=== PATIENT | male | born 1985 | race Two or more races ===

== ENCOUNTER 2025-05-03 09:05 | Outpatient (AMB) | payer BC, SELFPAY ==
--- NOTE | 2025-05-03 09:30 | A.OFFVIS_ITS ---
Intake Visit Reasons: dysuria/ED Intake Note: New is present for Erectile Dysfunction and Dysuria Urology Rx:none PVR:25 mls Blood Thinners:none Imaging completed:none Heavy Equipment Diesel Mechanic Required: No Accompanied by: Self / Same As Patient Allergies No Known Allergies Allergy (Verified 05/03/25 09:39) HPI Comments Details: Joe is a very pleasant male. He is seen for the following urologic conditions - urinary tract infection UA today negative Discussed over cleaning of penis and penile tip Has been creating inflamed urethra Everything normal on exam Episode of urinary tract infection PVR today 25 cc UA normal Review of Systems Const Denies chills and Denies fever(s) Card Reports no additional complaints and Denies syncope Resp Denies cough GI Denies abdominal pain and Denies heartburn Reports as per HPI and Denies change in libido Neuro Denies syncope Psych Denies change in libido Endo Denies change in libido Physical Exam Const General: cooperative, healthy appearing, comfortable and no acute distress Orientation/consciousness: patient oriented x3 HEENT Face and sinus: Yes normal facial exam Mouth: moist mucous membranes Neck Neck: Yes normal visual inspection, Yes full ROM and Yes trachea midline Chest Chest palpation & inspection: normal inspection of the chest Resp Effort & Inspection: normal respiratory effort, able to speak in complete s entences and no respiratory distress GI Inspection: Yes normal to inspection Back/Spine/Pelvis Cervical Spine: normal cervical lordosis Thoracic/Lumbar Spine: thoracic and lumbar spine normal to inspection Skin General skin exam: no rashes or lesions noted Neuro General: patient oriented x3, gait normal, tone normal and moves all extremities Extrem General: Yes normal to inspection and Yes capillary refill normal Office Procedures Post Void Residual Post Residual Void Post Void Residual (PVR): 25 [id number] Void Residual by ultrasound Results AMB Urinalysis, Automated UA Leukoctes 0 Yuan/uL Last Edit by JOMAR Meyers on 05/03/25 09:41 UA Nitrite Negative Last Edit by JOMAR Meyers on 05/03/25 09:41 UA Urobilinogen 0.2 mg/dL Last Edit by JOMAR Meyers on 05/03/25 09:41 UA Protein 0 mg/dL Last Edit by JOMAR Meyers on 05/03/25 09:41 UA pH 6.0 Last Edit by JOMAR Meyers on 05/03/25 09:41 UA Blood 10 Andrea/uL Last Edit by Dolores Paris, [facility] on 05/03/25 09:41 UA Specific Magness 1.015 Last Edit by Dolores Paris, [facility] on 05/03/25 09:4 1 UA Ketone Negative Last Edit by Dolores Paris, [facility] on 05/03/25 09:41 UA Bilirubin 0 mg/dL Last Edit by Dolores Paris, [facility] on 05/03/25 09:41 UA Glucose 0 mg/dL Last Edit by Dolores Paris, [facility] on 05/03/25 09:41 Results Reviewed Results Reviewed: Laboratory Last Values Urine pH (Auto) 6.0 05/03/25 09:41 Specific Magness (Auto) 1.015 05/03/25 09:41 Urine Protein (Auto) 0 mg/dL 05/03/25 09:41 Glucose (UA)(Auto) 0 mg/dL 05/03/25 09:41 Urine Ketones (Auto) Negative 05/03/25 09:41 Urine Blood (Auto) 10 Andrea/uL 05/03/25 09:41 Urine Nitrite (Auto) Negative 05/03/25 09:41 Urine Bilirubin (Auto) 0 mg/dL 05/03/25 09:41 Urine Urobilinogen (Auto) 0.2 mg/dL 05/03/25 09:41 Leukocyte Esterase (Auto) 0 Yuan/uL 05/03/25 09:41 Assessment & Plan Assessment & Plan (1) Urethritis: Code(s): N34.2 - Other urethritis Category: Medical Plan Reassurance provided Patient Instructions: This note is constructed using voice recognition software. While every effort has been made to ensure accuracy tennis instructor errors may have been included. Imaging studies, laboratory and physical exam results were discussed and reviewed in detail. No major barriers to patient understanding were identified. An opportunity to ask questions regarding the treatment plan was provided. All questions were answered. The patient expressed understanding and agreement with the above treatment plan. The patient is aware they should contact our office by phone for worsening of their current condition or the appearance of new urologic symptoms. Compliance is encouraged with any medications and followup testing that is ordered. It is a privilege to participate in the urologic care of your patient. If you have any questions or concerns regarding treatment for the above conditions, or other urologic issues, please do not hesitate to contact me. The office telephone contact is [phone]. Sincerely, Dr Darian Camarillo MD, [facility] - Urology Compassionate Specialist Care for the Genitourinary System Coding Level of Care Code New Pt Level 3 (19249) Diagnoses Urethritis N34.2 CPT Codes Post Residual Void - PVR CPT Code: 20320-[id number] Void Residual by ultrasound ([id number])
--- OUTSIDE RECORDS SUMMARY | 2025-05-03 09:52 | XMS_ITS | Clinical Summary ---
Author Organization [facility] Address [address] [place] [address] Care Team Providers Care Chief Building Inspector Name Role Phone Unavailable Primary Care Provider Unavailabl e Source Comments PLEASE NOTE, if this patient is a minor, it may be UNLAWFUL to discuss sensitive information that is contained in these records (such as FAMILY PLANNING, MENTAL HEALTH or SUBSTANCE ABUSE) with the minor patient's parent or other person without the patient's specific authorization.[facility] Immunizations Immunization Administration Dates Next Due Moderna COVID-19 Vaccine, re d cap blue label, 12+ Primary Series 10/28/2020,09/30/2020 Social History Tobacco Use Types Packs/Day Years Used Date Smoking Tobacco: Never Assessed Social Connections Answer Date Recorded Social Connections and Isolation 0 09/30/2020 Financial Resource Strain Answer Date R ecorded Financial Resource Strain 0 2020 Stress Answer Date Recorded Stress 0 09/30/2020 Physical Activity Answer Date Recorded Physical Activity 0 09/30/2020 Food Insecurity Answer Date Recorded Food 0 09/30/2020 Transportation Needs Answer Date Record ed Transportation 0 09/30/2020 Housing Stability Answer Date Recorded Housing 0 09/30/2020 Safety and Environment Answer Date Jorden rded Safety 0 09/30/2020 Utilities Answer Date Recorded Utilities 0 09/30/2020 Employment Answer Date Recorded Employment 0 09/30/2020 Sex and Gender Information Value Date Recorded Sex Assigned at Not on file Legal Sex Male 8:14 AM PDT Gender Identity Not on file Sexual Orientation Not on file Plan of Treatment Health Maintenance Due Date Last Done Comments Anxiety Screening 1987 Diabetes Screening 1987 Hepatitis C Screening 1987 Tobacco Screening 1987 HIV Screening 10/12/2002 Hypertension Screening (#1) 10/12/2005 Imm-DTaP/Tdap/Td (1 - Tdap) 10/12/2006 Imm-Hepatitis B (1 of 3 - 19 + 3-dose series) 10/12/2006 Imm-HPV (1 - 3-dose SCDM series) 10/12/2014 Alcohol and Drug Screen 06/28/2024 Depression Annual Screen 06/28/2024 [id number] ( season) 02/26/202510/28/ 021, 09/30/2020 Imm-Influenza (#1) 2025 Insurance [facility]
--- OUTSIDE RECORDS SUMMARY | 2025-05-03 09:52 | XMS_ITS | Clinical Summary ---
Author Organization [facility] [address] [facility] Address [address] [place] [address] Phone Care Team Providers Care Senior Coldfusion Developer Name Role Phone Jolene Kurtz DO Primary Care Provider [phone] Allergies No known active allergies Medications multivitamin tablet Take by mouth. Active albuterol HFA (PROAIR HFA ; PROVENTIL HFA ; VENTOLIN HFA) 90 mcg/actuation inhaler Inhale 2 Puffs into the lungs every 4 hours as needed for Cough or Wheezing. 6.7 g 10/05/2024 Active Encounters Date Type Department Care Team Description 03/21/2025 Telephone Walk-In [address] [phone] Ciro Hutchins 03/09/2025 Telephone Walk-In [address] [phone] Jamel Walton NP 03/09/2025 Telephone Walk-In [address] [phone] Jamel Walton NP 03/08/2025 9:15 AM EDT Office Visit Walk-In [address] [phone] Jamel Walton NP Routine screening for STI (sexually transmitted infection) (Primary Dx); Hematuria, unspecified type; Lower urinary tract symptoms 03/07/2025 Telephone Walk-In Clinic - [address] [phone] Jamel Walton NP 03/06/2025 Telephone Internal Medicine - [address] [phone] Jolene Kurtz DO from Last 3 Months Immunizations Immunization Administration Dates Next Due Tdap Tetanus diptheria acell ular pertussis (Boostrix; Adacel) 7yo and older 09/01/2022 Surgical History Surgery Date Site/Laterality Comments OTHER SURGICAL HISTORY PROCEDURE: DENIES PREVIOUS SURGERY Medical History Medical History Date Comments Patient denies medical problems DX:Patient denies medical problems Family History Medical History Relation Name Comments Prostate cancer Father Hypertension Mother Diabetes Paternal Grandfather Coronary artery disease Neg Hx Relation Name Status Comments Father Mother Paternal Grandfather Social History Tobacco Use Types Packs/Day Years Used Date Smoking Tobacco: Never Smokeless Tobacco: Never Tobacco Cessation:Counseling Given: Not Answered Alcohol Use Standard Drinks/Week Comments Yes 0 (1 standard drink = 0.6 oz pur e alcohol) Sex and Gender Information Value Date Recorded Sex Assigned at Not on file Legal Sex Male 2:36 PM EST Gender Identity Male 08/17/2024 2:12 PM EST Sexual Orientation Not on file Obstetrics History Last Filed Vital Signs Vital Sign Reading Time Taken Comments Blood Pressure 110/74 03/08/2025 8:59 AM EDT Pulse 68 03/08/2025 8:59 AM EDT Temperature 36.3 C (97.4 F) 03/08/2025 8:59 AM EDT Respiratory Rate 17 08/17/2024 3:15 PM EST Oxygen Saturation 98% 03/08/2025 8:59 AM EDT Inhaled Oxygen Concentration - - Weight 70.9 kg (156 lb 6.4 oz) 10/05/2024 9:00 A M EDT Height 165.1 cm (5' 5 ) 10/05/2024 9:00 AM EDT Body Mass Index 26.03 10/05/2024 9:00 AM EDT Plan of Treatment Health Maintenance Due Date Last Done Comments Hepatitis B Vaccines (1 of 3 - 19+ 3-dose series) 10/12/2006 HPV Vaccines (1 - 3-dose SCD M series) 10/12/2014 Social Influencers of Health Screening 05/27/2022 Depression Screening 06/28/2024 COVID-19 Vaccine (3 - 2024-2 6 season) 2025 10/28/2020, 09/30/2020 Influenza Vaccine (#1) 2025 Cholesterol Screening (Lipid Panel) 09/02/2027 09/01/2022 DTaP,Tdap,and Td Vaccines (2 - Td or Tdap) 09/01/2032 09/01/2022 RSV Immunization Adult Patients (1 - 1-dose 75+ series) 10/12/2062 HIV Screening Completed 03/08/2025 Hepatitis C Screening Completed 03/08/2025 , 09/01/2022 HIB Vaccines Aged Out No longer eligi ble based on patient's age to complete this topic Hepatitis A Vaccines Aged Out No long er eligible based on patient's age to complete this topic IPV Vaccines Aged Out No longer eligi ble based on patient's age to complete this topic MMR Vaccines Aged Out No longer eligi ble based on patient's age to complete this topic Meningococcal ACWY Vaccine Aged Out N o longer eligible based on patient's age to complete this topic Meningococcal B Vaccine Aged Out No l onger eligible based on patient's age to complete this topic Pneumococcal Vaccine: Pediatrics (0 to 5 Years) and At-Risk Patients (6 to 49 Years) Aged Out No longer eligible b ased on patient's age to complete this topic RSV Immunization Patients Under 20 months Aged Out No longer eligible b ased on patient's age to complete this topic Varicella Vaccines Aged Out No longer eligible based on patient's age to complete this topic Procedures Procedure Name Priority Date/Time Associated Diagnosis Comments POC URINE NON-AUTO W/O MICRO Routine 03/08/2025 9:19 AM EDT Lower urinary tract symptoms HEPATITIS PANEL, ACUTE WITH REFLEX TO CONFIRMATION Routine 03/08/2025 9:12 AM EDT Routine screening for STI (sexually transmitted infection) HIV 1, 2 ANTIBODY, P24 ANTIGEN WITH REFLEX TO DIFFERENTIATION Routine 03/08/2025 9:12 AM EDT Hematuria, unspecified type Lower urinary tract symptoms Routine screening for STI (sexually transmitted infection) TREPONEMA PALLIDUM ANTIBODY WITH REFLEX TO RPR AND PARTICLE AGGLUTINATION Routine 03/08/2025 9:12 AM EDT Hematuria, unspecified type Lower urinary tract symptoms Routine screening for STI (sexually transmitted infection) HERPES SIMPLEX VIRUS 2 ANTIBODY, IGG Routine 03/08/2025 9:12 AM EDT Hematuria, unspecified type Lower urinary tract symptoms Routine screening for STI (sexually transmitted infection) HERPES SIMPLEX VIRUS 1 ANTIBODY, IGG Routine 03/08/2025 9:12 AM EDT Hematuria, unspecified type Lower urinary tract symptoms Routine screening for STI (sexually transmitted infection) URINALYSIS MICROSCOPIC ONLY Routine 03/08/2025 9:12 AM EDT Lower urinary tract symptoms URINALYSIS MICROSCOPIC ONLY Routine 03/08/2025 9:12 AM EDT Lower urinary tract symptoms TRICHOMONAS, URINE Routine 03/08/2025 9: 12 AM EDT Hematuria, unspecified type Lower urinary tract symptoms Routine screening for STI (sexually transmitted infection) CHLAMYDIA TRACHOMATIS AND NEISSERIA GONORRHOEAE PCR Routine 03/08/2025 9:12 AM EDT Hematuria, unspecified type Lower urinary tract symptoms Routine screening for STI (sexually transmitted infection) CULTURE URINE Routine 03/08/2025 9:12 AM EDT Lower urinary tract symptoms LIPID PANEL Routine 09/01/2022 from Last 3 Months or Most Recently Relevant to Health Maintenance Results * (ABNORMAL) POC Urine Non-Auto W/O Micro (03/08/2025 9:19 AM EDT) GLUCOSE POC Negative Negative, Trace mg/dL Leukocytes UA POC Negative Negative mg/dL Comment:trace Nitrite UA POC Negative Urobilinogen UA POC >=8.0 E.U./dL mg/dL Protein UA POC Positive Positive, Negative PH UA POC 6.0 CYRUS/HM UA POC Trace(A) Negative Specific Center UA POC <=1.005 Ketones UA POC Negative Negative Bilirubin UA POC Negative Negative Urine Urine specimen obtained by clean catch procedure / Unknown 03/08/2025 9:19 AM EDT Jamel Walton NP POINT OF CARE TEST ENTER/EDIT ORDERABLES Final Result * Urinalysis microscopic only (03/08/2025 9:12 AM EDT) Pathologist [facility] [place] RBC, Urine 1.1 0 - 4 /HPF LAB URINALYSIS - AUTOMATED METHOD 03/08/2025 8:33 PM EDT [facility] WBC, Urine 0.0 0 - 4 /HPF LAB URINALYSIS - AUTOMATED METHOD 03/08/2025 8:33 PM EDT [facility] Squamous Epithelial, Urine 2 0 - 60 /LPF LAB URINALYSIS - AUTOMATED METHOD 03/08/2025 8:33 PM EDT [facility] Bacteria, Urine Negative Negative /HPF LAB URINALYSIS - AUTOMATED METHOD 03/08/2025 8:33 PM EDT [facility] Hyaline Casts, Urine 0.0 0 - 3 /LPF LAB URINALYSIS - AUTOMATED METHOD 03/08/2025 8:33 PM EDT [facility] Urine Urine specimen obtained by clean catch procedure / Unknown Non-blood Collection / Unknown 03/08/2025 9:12 AM EDT 03/08/2025 9:12 AM EDT Jamel Walton NP LAB URINE ORDERABLES Final Re sult [facility] [address] [place] [address], * HIV 1,2 antibody, p24 antigen with reflex to differentiation (03/08/2025 9:12 AM EDT) HIV Combo AB/AG Negative Negative LAB CHEMISTRY METHOD 03/08/2025 9:04 PM EDT [facility] Blood Venous blood specimen / Unknown Venipuncture / Unknown 03/08/2025 9:12 AM EDT 03/08/2025 9:12 AM EDT Narrative [facility] - 03/08/2025 9:04 PM EDT This assay is a 4th generation assay allowing for earlier detection of HIV infection by detecting the presence of the HIV-1 p24 antigen as well as the traditional antibodies to HIV type 1 (including group O) and type 2. Use of a 4th generation assay is the current CDC recommendation for HIV screening. us Jamel Walton NP LAB BLOOD ORDERABLES Final Re sult Performing Organization Address [facility]/ZIP Co de Phone Number [facility] [address] [place] [address], [place] [phone] * Treponema pallidum antibody with reflex to RPR and particle agglutination (03/08/2025 9:12 AM EDT) Pathologist [facility] [place] T. Pallidum Antibodies Negative Negative LAB CHEMISTRY METHOD 03/08/2025 9:56 PM EDT [facility] Blood Venous blood specimen / Unknown Venipuncture / Unknown 03/08/2025 9:12 AM EDT 03/08/2025 9:12 AM EDT Jamel Walton NP LAB BLOOD ORDERABLES Final Re sult Performing Organization Address City/[facility]/ZIP Co de Phone Number [facility] [address] [place] [address], [place] [phone] * Hepatitis panel, acute with reflex to confirmation (03/08/2025 9:12 AM EDT) Hepatitis B Surface Ag Negative Negative LAB CHEMISTRY METHOD 03/08/2025 9:05 PM EDT [facility] Hepatitis A Antibody IgM Negative Negative LAB CHEMISTRY METHOD 03/08/2025 9:05 PM EDT [facility] Hep B Core IgM Negative Negative LAB CHEMISTRY METHOD 03/08/2025 9:05 PM EDT [facility] Hepatitis C Antibody Negative Negative LAB CHEMISTRY METHOD 03/08/2025 9:05 PM EDT [facility] Blood Venous blood specimen / Unknown Venipuncture / Unknown 03/08/2025 9:12 AM EDT 03/08/2025 9:12 AM EDT Jamel Walton NP LAB BLOOD ORDERABLES Final Re sult Performing Organization Address City/[facility]/ZIP Co de Phone Number [facility] [address] [place] [address], [place] [phone] * Trichomonas, urine (03/08/2025 9:12 AM EDT) Trichomonas, Urine None Seen None Seen 03/08/2025 9:33 PM EDT [facility] Urine Urine specimen obtained by clean catch procedure / Unknown Non-blood Collection / Unknown 03/08/2025 9:12 AM EDT 03/08/2025 9:12 AM EDT Jamel Walton NP LAB MICROBIOLOGY - GENERAL OR DERABLES Final Result Performing Organization Address City/[facility]/ZIP Co de Phone Number [facility] [address] [place] [address], [place] [phone] * Chlamydia trachomatis and Neisseria gonorrhoeae molecular study (03/08/2025 9:12 AM EDT) Neisseria gonorrhoeae PCR Negative Negative LAB MOLECULAR DIAGNOSTICS METHOD 03/09/2025 10:48 AM EDT [facility] Chlamydia trachomatis PCR Negative Negative LAB MOLECULAR DIAGNOSTICS METHOD 03/09/2025 10:48 AM EDT [facility] Urine Urine specimen from urethra / Unknown Non-blood Collection / Unknown 03/08/2025 9:12 AM EDT 03/08/2025 9:12 AM EDT Jamel Walton NP LAB MICROBIOLOGY - GENERAL OR DERABLES Final Result Performing Organization Address [facility] Co de Phone Number [facility] [address] [place] [address], [place] [phone] * Herpes simplex virus 2 antibody, IgG (03/08/2025 9:12 AM EDT) HSV 2 IgG 0.05 <=0.90 index byron LAB CHEMISTRY METHOD 03/09/2025 10:14 AM EDT [facility] HSV-2 IgG Interpretation Negative Negative LAB CHEMISTRY METHOD 03/09/2025 10:14 AM EDT [facility] Blood Venous blood specimen / Unknown Venipuncture / Unknown 03/08/2025 9:12 AM EDT 03/08/2025 9:12 AM EDT Jamel Walton NP LAB BLOOD ORDERABLES Final Re sult Performing Organization Address [facility] de Phone Number [facility] [address] [place] [address], [place] [phone] * (ABNORMAL) Herpes simplex virus 1 antibody, IgG (03/08/2025 9:12 AM EDT) Pathologist [facility] [place] HSV 1 IgG 53.70(H) <=0.90 index byron LAB CHEMISTRY METHOD 03/09/2025 10:14 AM EDT [facility] HSV-1 IgG Interpretation Positive (A) Negative LAB CHEMISTRY METHOD 03/09/2025 10:14 AM EDT [facility] Blood Venous blood specimen / Unknown Venipuncture / Unknown 03/08/2025 9:12 AM EDT 03/08/2025 9:12 AM EDT Jamel Walton NP LAB BLOOD ORDERABLES Final Re sult Performing Organization Address City/[facility]/ZIP Co de Phone Number [facility] [address] [place] [address], * Culture urine (03/08/2025 9:12 AM EDT) Pathologist [facility] [place] Culture, Urine No growth 03/09/2025 1:36 PM EDT [facility] Urine Urine specimen obtained by clean catch procedure / Unknown Non-blood Collection / Unknown 03/08/2025 9:12 AM EDT 03/08/2025 9:12 AM EDT Jamel Walton NP LAB MICROBIOLOGY - GENERAL OR DERABLES Final Result [facility] [address] [place] [address], * Lipid panel (09/01/2022) [facility] LDL/HDL Ratio 4 0 - 4 Triglycerides 132 0 - 150 mg/dL Cholesterol 165 0 - 200 mg/dL HDL 47 >=40 mg/dL LDL Cholesterol 92 0 - 100 mg/dL Blood Venous blood specimen / Unknown Historical Provider LAB BLOOD ORDERABLES Kassi l Result from Last 3 Months or Most Recently Relevant to Health Maintenance Additional Health Concerns Infection Onset Date Last Indicated Herpes simplex 03/08/2025 03/08/2025 Insurance [facility] Care Teams Senior Coldfusion Developer Relationship Specialty Start Date End Date Jolene Kurtz DO [address] [place] [address] PCP - General 04/01/23
== END 2025-05-03 10:09 | disposition home or self-care (01) ==
LOC: HO.HUSH 09:06
PROVIDERS: Visit Provider Urology
DX: N34.2 Other urethritis (principal)
CPT/HCPCS: 99203

== ENCOUNTER → 2025-05-03 09:05 | Outpatient (BNVA) | payer BC, SELFPAY | PROVIDERS: Visit Provider Urology | DX: N34.2 Other urethritis (principal) | CPT/HCPCS: 51798 ==